=== PATIENT | male | born 1990 | race American Indian/Alaskan Native ===

== ENCOUNTER 2019-01-20 23:36 | Emergency (ER) | payer SELFPAY | END 2019-01-21 02:00 | disposition left against medical advice (07) | LOC: ED 23:36 | DX: R51 Headache (principal); R11.10 Vomiting, unspecified; Z53.21 Procedure and treatment not carried out due to patient leaving prior to being seen by health care provider | CPT/HCPCS: 82962 ==

== ENCOUNTER 2019-06-05 21:00 | Emergency (ER) | payer BC, OTHER ==
[2019-06-05 21:08] VITALS: BP 149/92
--- NOTE | 2019-06-05 21:16 | Event Note ---
ED Screening Note Date of service: 06/05/19 Time: 21:14 ED Screening Note: This is a 28 y.o. M. that presents to the ER with a headache and vomiting since around 1200 today. He took NSAID with no improvement of symptoms. PMH migraines This initial assessment/diagnostic orders/clinical plan/treatment(s) is/are subject to change based on patients health status, clinical progression and re- assessment by fellow clinical providers in the ED. Further treatment and workup at subsequent clinical providers discretion. Patient/guardian urged not to elope from the ED as their condition may be serious if not clinically assessed and managed. Initial orders include: CT of head
--- NOTE | 2019-06-05 22:49 | Cat Scan Report ---
CT head/brain wo con INDICATION / CLINICAL INFORMATION: migraine. TECHNIQUE: All CT scans at this location are performed using CT dose reduction for ALARA by means of automated e xposure control. COMPARISON: None available. FINDINGS: Ventricle size is normal. No mass or mass effect is seen. There is no evidence of intracranial hemorr gabi. No obvious area of infarction is identified. Visualized paranasal sinuses are clear. IMPRESSION: No acute findings Signer Name: Devan Felix MD FACCarlos Signed: 06/05/2019 10:44 PM Workstation Name: [id number]
[2019-06-05] MEDS ORDERED: FIORICET PO ONE (23:53)
--- NOTE | 2019-06-05 23:57 | Emergency Department Report ---
ED Headache HPI - General Chief Complaint: Headache Stated Complaint: SEVERE HEADACHE Time Seen by Provider: 06/05/19 21:14 - History of Present Illness Initial Comments: This is a 28-year-old male with a history of chronic headache presented to the ED complaining of severe throbbing aching generalized headache that started this afternoon. Patient states that he had 2 episodes of vomiting. He denies any head trauma and head injuries or loss of consciousness. Quality: severe, achy Head Injury Location: frontal, temporal Recent Head Trauma: no recent headache/trauma, occasional headaches Modifying Factors: improves with: rest Associated Symptoms: denies: confusion, fatigue, facial pain, nasal congestion, nasal drainage, sinus infection, stiff neck Allergies/Adverse Reactions: Allergies No Known Allergies Allergy (Unverified 01/20/19 23:47) Home Medications: Ambulatory Orders Butalb/Acetamin/Caff 50-325-40 [Fioricet 50-325-40] 2 tab PO TID #14 tablet 06/06/19 Ibuprofen [Motrin] 800 mg PO Q8HR #30 tablet 06/06/19 ED Review of Systems ROS: Stated complaint: SEVERE HEADACHE Other details as noted in HPI Comment: All other systems reviewed and negative ED Past Medical Hx - Past Medical History Previous Medical History?: No - Surgical History Past Surgical History?: No - Social History Smoking Status: Never Smoker Substance Use Type: None - Medications Home Medications: Home Medications Medication Instructions Recorded Confirmed Last Taken Type Butalb/Acetamin/Caff 50-325-40 2 tab PO TID #14 tablet 06/06/19 Unknown Rx [Fioricet 50-325-40] Ibuprofen [Motrin] 800 mg PO Q8HR #30 tablet 06/06/19 Unknown Rx ED Physical Exam - General Limitations: No Limitations General appearance: alert, in no apparent distress - Head Head exam: Present: atraumatic, normocephalic - Eye Eye exam: Present: normal appearance - ENT ENT exam: Present: mucous membranes moist - Neck Neck exam: Present: normal inspection - Respiratory Respiratory exam: Present: normal lung sounds bilaterally. Absent: respiratory distress - Cardiovascular Cardiovascular Exam: Present: regular rate, normal rhythm. Absent: systolic murmur, diastolic murmur, rubs, gallop - GI/Abdominal GI/Abdominal exam: Present: soft, normal bowel sounds - Rectal Rectal exam: Present: deferred - Extremities Exam Extremities exam: Present: normal inspection - Back Exam Back exam: Present: normal inspection - Neurological Exam Neurological exam: Present: alert, oriented X3, CN II-XII intact, normal gait - Expanded Neurological Exam Expanded Patient oriented to: Present: person, place, time Speech: Present: fluid speech Cerebellar function: Finger to Nose: Normal Motor strength exam: RUE: 5, LUE: 5, RLE: 5, LLE: 5 Best Eye Response ([place]): (4) open spontaneously Best Motor Response ([place]): (6) obeys commands Best Verbal Response ([place]): (5) oriented Yuli Total: 15 - Psychiatric Psychiatric exam: Present: normal affect, normal mood - Skin Skin exam: Present: warm, dry, intact, normal color. Absent: rash ED Course Vital Signs 06/05/19 06/05/19 21:07 21:14 Temperature 97.9 F 97.9 F Pulse Rate 66 66 Respiratory 18 20 Rate Blood Pressure 149/92 Blood Pressure 149/92 [Left] O2 Sat by Pulse 100 100 Oximetry ED Medical Decision Making - Radiology Data Radiology results: report reviewed, image reviewed CT head/brain wo con INDICATION / CLINICAL INFORMATION: migraine. TECHNIQUE: All CT scans at this location are performed using CT dose reduction for ALARA by means of automated exposure control. COMPARISON: None available. FINDINGS: Ventricle size is normal. No mass or mass effect is seen. There is no evidence of intracranial hemorrhage. No obvious area of infarction is identified. Visualized paranasal sinuses are clear. IMPRESSION: No acute findings Signer Name: Devan Felix MD FACR Signed: 06/05/2019 10:44 PM Workstation Name: [id number] Transcribed By: MS Dictated By: Devan Felix MD Electronically Authenticated By: Devan Felix MD Signed Date/Time: 06/05/19 1120 - Medical Decision Making 28-year-old male presents with acute onset of migraine headache. Patient received Fioricet D. CT scan shows no acute findings, see reported above Discussed findings with the patient. Discussed patient to follow up with primary care physician. Critical care attestation.: If time is entered above; I have spent that time in minutes in the direct care of this critically ill patient, excluding procedure time. ED Disposition Clinical Impression: Acute headache, Migraine Disposition: DC- TO HOME OR SELFCARE Is pt being admited?: No Does the pt Need Aspirin: No Condition: Stable Instructions: Acute Headache (ED), Migraine Headache (ED) Additional Instructions: Make sure to follow up with the primary care physician as discussed. Take all your medications as you've been prescribed. If you have any worsening symptoms or develop new symptoms please return to ED immediately. Prescriptions: Butalb/Acetamin/Caff 50-325-40 [Fioricet 50-325-40] 2 tab PO TID #14 tablet Ibuprofen [Motrin] 800 mg PO Q8HR #30 tablet [facility]Primary Care Provider] - 3-5 Days ZONIA ABDUL MD [Staff Physician] - 3-5 Days [facility] [Outside] - 3-5 Days [facility] [Outside] - 3-5 Days Forms: Accompanied Note, Work/School Release Form(ED) Time of Disposition: 00:04
== END 2019-06-06 00:27 | disposition home or self-care (01) ==
LOC: ED 21:00
DX: G43.909 Migraine, unspecified, not intractable, without status migrainosus (principal); Z79.899 Other long term (current) drug therapy
CPT/HCPCS: 70450; 99283

== ENCOUNTER 2020-01-03 04:43 | Emergency (ER) | payer SELFPAY ==
[2020-01-03 04:55] VITALS: BP 125/67
[2020-01-03] MEDS ORDERED: IBUPROFEN 800 MG TAB PO ONE (05:39)
--- NOTE | 2020-01-03 05:44 | Emergency Department Report ---
ED Male HPI - General Chief complaint: Urogenital-Male Stated complaint: POSS HEMORRHOID PAIN Time Seen by Provider: 01/03/20 05:02 Source: family Mode of arrival: Ambulatory Limitations: No Limitations - History of Present Illness Initial comments: This is a 29-year-old -[place] male who presents to the emergency room for rectal pain for 1 day. Patient states symptoms started around 0300 a.m. yesterday morning. Patient states his mom evaluated area and stated it looks similar to when she had a hemorrhoid flare. Instructed patient to use Preparation H which improved swelling. Patient states pain is uncontrolled at this time and hemorrhoids are still flared. He denies rectal bleeding and constipation. MD Complaint: other (Rectal pain) Onset/Timin -: days(s) Severity scale (0 -10): 7 Quality: aching Consistency: intermittent Improves with: none Worsens with: other (Sitting) denies other symptoms - Related Data Sexually active: Yes Previous Rx's Medication Instructions Recorded Last Taken Type Butalb/Acetamin/Caff 50-325-40 2 tab PO TID #14 tablet 06/06/19 Unknown Rx [Fioricet 50-325-40] Ibuprofen [Motrin] 800 mg PO Q8HR #30 tablet 06/06/19 Unknown Rx Hydrocortisone [Anucort-HC SUPPOS] 25 mg RC BID #14 supp.rect 01/03/20 Unknown Rx Pramoxine 1% [Proctofoam] 1 applicatio TP 5XD PRN #1 foam 01/03/20 Unknown Rx Allergies Allergy/AdvReac Type Severity Reaction Status Date / Time No Known Allergies Allergy Unverified 01/20/19 23:47 ED Review of Systems ROS: Stated complaint: POSS HEMORRHOID PAIN Other details as noted in HPI Constitutional: denies: chills, fever Respiratory: denies: cough, shortness of breath, wheezing Cardiovascular: denies: chest pain, palpitations Gastrointestinal: other (Rectal pain). denies: abdominal pain, nausea, diarrhea Genitourinary: denies: urgency, dysuria Musculoskeletal: denies: back pain, joint swelling, arthralgia Skin: denies: rash, lesions Neurological: denies: headache, weakness, paresthesias Psychiatric: denies: anxiety, depression ED Past Medical Hx - Past Medical History Previous Medical History?: No - Surgical History Past Surgical History?: No - Social History Smoking Status: Never Smoker Substance Use Type: None - Medications Home Medications: Home Medications Medication Instructions Recorded Confirmed Last Taken Type Butalb/Acetamin/Caff 50-325-40 2 tab PO TID #14 tablet 06/06/19 Unknown Rx [Fioricet 50-325-40] Ibuprofen [Motrin] 800 mg PO Q8HR #30 tablet 06/06/19 Unknown Rx Hydrocortisone [Anucort-HC SUPPOS] 25 mg RC BID #14 supp.rect 01/03/20 Unknown Rx Pramoxine 1% [Proctofoam] 1 applicatio TP 5XD PRN #1 foam 01/03/20 Unknown Rx ED Physical Exam - General Limitations: No Limitations General appearance: alert, in no apparent distress - Respiratory Respiratory exam: Present: normal lung sounds bilaterally. Absent: respiratory distress - Cardiovascular Cardiovascular Exam: Present: regular rate, normal rhythm. Absent: systolic murmur, diastolic murmur, rubs, gallop - GI/Abdominal GI/Abdominal exam: Present: soft, normal bowel sounds. Absent: distended, tenderness, guarding, rebound, rigid - Rectal Rectal exam: Present: normal rectal tone, heme (-) stool, hemorrhoids (erythematous external hemorrhoids skin color, TTP). Absent: decreased rectal tone, heme (+) stool, black stool, bloody stool, fecal impaction, mass, tenderness, normal prostate, prostate tenderness, prostate enlargement - Extremities Exam Extremities exam: Present: normal inspection - Neurological Exam Neurological exam: Present: alert, oriented X3 - Psychiatric Psychiatric exam: Present: normal affect, normal mood - Skin Skin exam: Present: warm, dry, intact, normal color. Absent: rash ED Course Vital Signs 01/03/20 04:48 Temperature 98.3 F Pulse Rate 81 Respiratory 16 Rate Blood Pressure 125/67 O2 Sat by Pulse 100 Oximetry ED Medical Decision Making - Medical Decision Making This is a 29-year-old male who presents to the emergency room with rectal pain for 1 day. Vitals are stable and patient in no acute distress. Patient has history and exam is most consistent with external hemorrhoids for cause of pain. There were no signs of thrombosed hemorrhoids. Symptoms are least likely related to anal rectal abscess, rectal foreign body, anal fissure, fistula, and proctitis. Given analgesics while in ER. Patient given instructions on bowel regimen and sitz bath for 15 minutes 3 times a day and after each bowel movement. Start hydrocortisone suppositories and Proctofoam. Patient discharged home with strict return instructions. Critical care attestation.: If time is entered above; I have spent that time in minutes in the direct care of this critically ill patient, excluding procedure time. ED Disposition Clinical Impression: Anal or rectal pain, Hemorrhoids, external without complications Disposition: TO HOME OR SELFCARE Is pt being admited?: No Condition: Stable Instructions: Hemorrhoids (ED), High Fiber Diet (ED), Sitz Bath (GEN) Additional Instructions: Take ibuprofen, Tylenol, or naproxen for pain. Use rectal suppositories and topical cream as directed on box. Follow-up with your primary care doctor. Return to the emergency room if you have worsening symptoms such as bleeding and worsening pain. Prescriptions: Hydrocortisone [Anucort-HC SUPPOS] 25 mg RC BID #14 supp.rect Pramoxine 1% [Proctofoam] 1 applicatio TP 5XD PRN #1 foam PRN Reason: Pain , Severe (7-10) Referrals: [facility] [Provider Group] - [facility] - 3-5 Days Forms: Work/School Release Form(ED) Time of Disposition: 05:50
== END 2020-01-03 06:00 | disposition home or self-care (01) ==
LOC: ED 04:43
DX: K62.89 Other specified diseases of anus and rectum (principal); K64.9 Unspecified hemorrhoids; Z79.1 Long term (current) use of non-steroidal anti-inflammatories (NSAID); Z79.899 Other long term (current) drug therapy
CPT/HCPCS: 99282